=== PATIENT | female | born 1930 | race Caucasian/White ===

== ENCOUNTER → 2016-12-21 | Outpatient (CLI) | payer OTHER | LOC: BMCIMAGING 12:53 | PROVIDERS: ATTEND Emergency Medicine | DX: M25.562 Pain in left knee (principal); W19.XXXA Unspecified fall, initial encounter ==

== ENCOUNTER → 2017-07-07 | Outpatient (CLI) | payer OTHER, MEDICARE | LOC: BMCIMAGING 16:31 | PROVIDERS: ATTEND Emergency Medicine | DX: S82.034A Nondisplaced transverse fracture of right patella, initial encounter for closed fracture (principal) ==

== ENCOUNTER → 2017-07-23 | Outpatient (CLI) | payer OTHER, MEDICARE | LOC: BMCIMAGING 16:39 | PROVIDERS: ATTEND Family Medicine | DX: S82.091A Other fracture of right patella, initial encounter for closed fracture (principal) ==

== ENCOUNTER → 2017-08-13 | Outpatient (CLI) | payer OTHER, MEDICARE | LOC: BMCIMAGING 08:36 | PROVIDERS: ATTEND Orthopaedic Surgery | DX: S82.034D Nondisplaced transverse fracture of right patella, subsequent encounter for closed fracture with routine healing (principal) ==